=== PATIENT | female | born 2000 | race Two or more races ===

== ENCOUNTER 2023-11-08 23:53 | Emergency (ER) | payer SELFPAY ==
[~2023-11-08] VITALS: Ht 162.6 cm; Wt 66.2 kg
[2023-11-09] MEDS ORDERED: ondansetron 4mg rapidly disintigrating tab PO ONE (00:40)
[2023-11-09] MEDS ORDERED: clindamycin 150mg capsule PO ONE (00:40)
[2023-11-09] MEDS ORDERED: ONDA8TAB13 PO (00:41)
[2023-11-09] MEDS ORDERED: CLIN150C2 PO (00:41)
[2023-11-09 01:08] VITALS: BP 116/72; PULSE 106; RESP 18; TEMP 98.4; O2SAT 98
== END 2023-11-09 01:08 | disposition home or self-care (01) ==
LOC: ER 23:55
DX: N61.0 Mastitis without abscess (principal); R50.9 Fever, unspecified; M54.9 Dorsalgia, unspecified; Z79.2 Long term (current) use of antibiotics; Z79.899 Other long term (current) drug therapy
CPT/HCPCS: 99283